=== PATIENT | female | born 2005 | race Caucasian/White ===

== ENCOUNTER 2024-12-24 09:01 | Emergency (ER) | payer OTHER ==
[~2024-12-24] VITALS: Ht 172.7 cm; Wt 88.5 kg
[2024-12-24] MEDS ORDERED: Ketorolac Tromethamine 30mg Vial IM ONE (09:10)
[2024-12-24] MEDS ORDERED: Ketorolac Tromethamine 30mg Vial IV ONE (09:10)
[2024-12-24] MEDS ORDERED: IBUP600 PO (10:11)
== END 2024-12-24 10:15 | disposition home or self-care (01) ==
LOC: ER 09:01
DX: S39.012A Strain of muscle, fascia and tendon of lower back, initial encounter (principal); S20.212A Contusion of left front wall of thorax, initial encounter; S50.12XA Contusion of left forearm, initial encounter; V48.9XXA Unspecified car occupant injured in noncollision transport accident in traffic accident, initial encounter
CPT/HCPCS: 71045; 72100; 73090; 96374; 99284-25; J1885